=== PATIENT | male | born 1955 | race African-American/Black ===

== ENCOUNTER 2018-03-31 06:08 | Emergency (ER) | payer BC ==
[2018-03-31] MEDS: LORAZEPAM 1 MG TAB PO (07:04)
[2018-03-31] MEDS: KETOROLAC 15 MG INJ IM (07:04)
== END 2018-03-31 09:36 | disposition home or self-care (01) ==
LOC: E/R 06:08
DX: F11.23 Opioid dependence with withdrawal (principal); B20 Human immunodeficiency virus [HIV] disease; R05 Cough; G47.00 Insomnia, unspecified; R10.9 Unspecified abdominal pain; R11.0 Nausea; M54.9 Dorsalgia, unspecified; R53.81 Other malaise; I10 Essential (primary) hypertension; R40.2142 Coma scale, eyes open, spontaneous, at arrival to emergency department; R40.2362 Coma scale, best motor response, obeys commands, at arrival to emergency department; Z86.69 Personal history of other diseases of the nervous system and sense organs; Z79.82 Long term (current) use of aspirin; Z87.891 Personal history of nicotine dependence
CPT/HCPCS: 71045; 96372; 99284-25

== ENCOUNTER 2018-04-15 09:56 | Emergency (ER) | payer BC | END 2018-04-15 10:20 | disposition home or self-care (01) | LOC: E/R 09:56 | DX: Z76.0 Encounter for issue of repeat prescription (principal); Z79.82 Long term (current) use of aspirin; Z87.891 Personal history of nicotine dependence | CPT/HCPCS: 99281 ==